=== PATIENT | male | born 1995 | race Caucasian/White ===

== ENCOUNTER 2019-09-09 21:13 | Emergency (ER) | payer OTHER ==
[~2019-09-09] VITALS: Ht 162.6 cm; Wt 62.3 kg
[2019-09-09 22:07] LABS: INFLUENZA A AMPLIFICATION NEGATIVE (NEGATIVE); INFLUENZA B AMPLIFICATION NEGATIVE (NEGATIVE)
[2019-09-09] MEDS ORDERED: ACETAMINOPHEN 500 MG TAB PO ONE (22:30)
[2019-09-09] MEDS ORDERED: NS 1,000 ML IV ONE (22:30)
[2019-09-09 22:49] LABS: BASO # 0.1 10^3/uL (0.0-0.2); BASO % 0.5 % (0.0-1.0); EOS # 0.9 10^3/uL (0.0-0.5); EOS % 7.7 % (0.0-3.0); HEMATOCRIT 39.3 % (42.0-52.0); HEMOGLOBIN 13.9 g/dl (13.5-17.5); LYMPH # 3.2 10^3/uL (1.5-5.0); LYMPH % 27.3 % (24.0-44.0); MEAN CORPUSCULAR HEMOGLOBIN 29.7 pg (27.0-33.0); MEAN CORPUSCULAR HGB CONC 35.4 g/dl (32.0-36.5); MONO # 1.3 10^3/uL (0.0-0.8); MONO % 10.9 % (0.0-5.0); NEUTROPHILS # 6.3 10^3/uL (1.5-8.5); NEUTROPHILS % 52.8 % (36.0-66.0); PLATELET COUNT, AUTOMATED 412 10^3/uL (150-450); RED BLOOD COUNT 4.68 10^6/uL (4.30-6.10); WHITE BLOOD COUNT 11.9 10^3/uL (4.0-10.0)
[2019-09-09 23:15] LABS: BLOOD UREA NITROGEN 14 MG/DL (7-18); CALCIUM LEVEL 8.9 MG/DL (8.5-10.1); CARBON DIOXIDE LEVEL 27 MEQ/L (21-32); CHLORIDE LEVEL 108 MEQ/L (98-107); CREATININE FOR GFR 1.07 MG/DL (0.70-1.30); GLOMERULAR FILTRATION RATE > 60.0 (>60); GLUCOSE, FASTING 91 MG/DL (70-100); POTASSIUM SERUM 3.9 MEQ/L (3.5-5.1); SODIUM LEVEL 142 MEQ/L (136-145)
[2019-09-09] MEDS ORDERED: VANCOMYCIN ORAL SOL 250MG/5ML ORAL SYRINGE PO ONE (23:45)
[2019-09-09] MEDS ORDERED: VANC125C3 PO (23:58)
[2019-09-10 00:16] VITALS: BP 111/59
== END 2019-09-10 00:17 | disposition home or self-care (01) ==
LOC: M ED 21:13
DX: A04.72 Enterocolitis due to Clostridium difficile, not specified as recurrent (principal)

== ENCOUNTER 2019-12-12 08:55 | Emergency (ER) | payer OTHER ==
[~2019-12-12] VITALS: Ht 162.6 cm; Wt 66.8 kg
[~2019-12-12 08:55] MED LIST: VANC125C3 PO
[2019-12-12] MEDS ORDERED: LIDOCAINE 1% MDV 20ML VIAL SC ONE (09:15)
[2019-12-12 10:37] VITALS: BP 118/63
[2019-12-12] MEDS ORDERED: MULTCAP PO (15:32)
== END 2019-12-12 10:39 | disposition home or self-care (01) ==
LOC: M ED 08:55
DX: S61.519A Laceration without foreign body of unspecified wrist, initial encounter (principal); W01.198A Fall on same level from slipping, tripping and stumbling with subsequent striking against other object, initial encounter; Y92.89 Other specified places as the place of occurrence of the external cause; Y93.89 Activity, other specified; Y99.1 Military activity

== ENCOUNTER 2019-12-19 11:32 | Day surgery (SDC) | payer OTHER ==
[~2019-12-19] VITALS: Ht 162.6 cm; Wt 66.2 kg
[~2019-12-19 11:32] MED LIST changes: +MULTCAP PO; +NS 1,000 ML IV ONE
[2019-12-19] MEDS ORDERED: LIDOCAINE 2% 100MG/5ML SDV (FOR ANES.) As Ordered ONE (14:01)
[2019-12-19] MEDS ORDERED: propofoL 200 MG/20 ML VIAL As Ordered ONE (14:01)
--- NOTE | 2019-12-19 14:02 | ROOR ---
Patient Name: Feliz Meraz Procedure Date: 12/19/2019 1:39 PM Date of : 1995 Age: 24 Room: OP02 Gender: Male Note Status: Finalized Procedure: Colonoscopy Indications: Hematochezia. (History of C difficile 1-2 months ago noted) Providers: Kahlil GEORGE MD Referring MD: NEHA SOLOMON MD Requesting Provider: Medicines: Monitored Anesthesia Care Complications: No immediate complications. Procedure: Pre-Anesthesia Assessment: - The heart rate, respiratory rate, oxygen saturations, blood pressure, adequacy of pulmonary ventilation, and response to care were monitored throughout the procedure. The Colonoscope was introduced through the anus and advanced to the cecum, identified by appendiceal orifice and ileocecal valve. The colonoscopy was performed without difficulty. The patient tolerated the procedure well. The quality of the bowel preparation was good. Findings: The perianal and digital rectal examinations were normal. A scattered area of mildly erythematous mucosa was found in the sigmoid colon and in the descending colon. This was biopsied with a cold forceps for histology. Internal hemorrhoids were found during retroflexion. The hemorrhoids were small. The exam was otherwise without abnormality on direct and retroflexion views. Impression: - A few patches of mildly reddened/erythematous mucosa in the sigmoid colon and in the descending colon. Biopsied. - Internal hemorrhoids. - The colon examination was otherwise normal on direct and retroflexion views. Recommendation: - Telephone endoscopist for pathology results in 2 weeks. Kahlil George MD Kahlil GEORGE MD 12/19/2019 2:02:18 PM Electronically signed by Kahlil GEORGE MD Number of Addenda: 0 Note Initiated On: 12/19/2019 1:39 PM Estimated Blood Loss: Estimated blood loss: none.
[2019-12-19 14:32] VITALS: BP 107/51
== END 2019-12-19 14:33 | disposition home or self-care (01) ==
LOC: M OPP 11:32
PROVIDERS: ATTEND Internal Medicine Gastroenterology
DX: K63.89 Other specified diseases of intestine (principal); K64.8 Other hemorrhoids; K92.1 Melena; R19.7 Diarrhea, unspecified; Z86.19 Personal history of other infectious and parasitic diseases